=== PATIENT | female | born 1990 | race Caucasian/White ===

== ENCOUNTER 2017-10-29 07:50 | Observation (INO) | payer OTHER ==
[~2017-10-29] VITALS: Ht 167.6 cm; Wt 54.6 kg
[~2017-10-29 07:50] MED LIST: HYDR-762 PO; RANI150T9 PO; SUCR1TAB56 PO; TRAM50TA2 PO
[2017-10-29] MEDS ORDERED: SOD CHLORIDE 0.9% 1,000 ML IV STA (08:50)
[2017-10-29] MEDS ORDERED: ONDANSETRON 4 MG INJ IV STA (08:50)
--- NOTE | 2017-10-29 09:29 | RADRPT ---
PROCEDURE: CT Brain without contrast. CLINICAL INDICATION: Syncope TECHNIQUE: Routine CT scan of the brain was performed on a high resolution multi detector scanner without intravenous contrast. One or more of the following dose reduction techniques were used: Auto mated exposure control; Adjustment of the mA and/or kV according to patient size; Use of iterative r econstruction technique. CTDI = 45 mGy. DLP = 630 mGy-cm. DICOM images are available. COMPARISON: No prior relevant examinations are available for comparison. FINDINGS: Hemorrhage: No evidence of intracranial hemorrhage. Acute ischemic changes: No evidence of acute ischemic changes. Mass effect: None. Parenchymal volume: Within normal limits for age. Ventricular system: Concordant with parenchymal volume. Chronic changes: Parenchymal attenuation is within normal limits. Extracranial soft tissues: Unremarkable. Calvarium: No fractures. Paranasal sinuses: Visualized paranasal sinuses are clear. Mastoid air cells: Visualized mastoid air cells are clear. IMPRESSION: No acute intracranial abnormalities. Normal appearance of the brain parenchyma. RPTAT: AADD .Krishan Madera MD, Date Time Electronically viewed and signed by .Krishan Madera MD, on 10/29/2017 09:29 .B/
--- NOTE | 2017-10-29 09:50 | ERD ---
ER Documentation Chief Complaint Chief Complaint syncope last friday, today has daigle HPI Patient is a 27-year-old female who presents with sudden onset, intermittent, severe headaches since last Friday when she had a syncopal episode that was witnessed. She denies having a prodrome prior to losing consciousness. She states that her friend saw her fall for it on the sidewalk and hit her head. She was unconscious for 1 minute per report. There is no seizure-like activity. The patient states that she had a second episode today. She reports having intermittent chest pain and shortness of breath for several years. She has seen a skiving machine operator in the diagnosed with an incomplete right bundle branch block. She is scheduled to have a stress test, but did not. She denies focal weakness or numbness, denies vomiting. She denies fever. She reports generalized weakness. ROS All systems reviewed and are negative except as per history of present illness. Medications Home Meds Discontinued Scripts Tramadol HCl (Tramadol HCl) 50 Mg Tablet, 50 MG PO Q6, #20 TAB 0 Refills Prov:ASCENCION CHOUDHURY PA-C 01/13/16 Hydrocodone Bit-Acetaminophen* ([place]*) 10-325 Mg Tablet, 1 TAB PO Q6 Y for PAIN , #20 TAB Prov:CLINTON CARDENAS 12/06/15 Sucralfate* (Carafate*) 1 Gm Tab, 1 GM PO QID, #30 TAB Prov:CLINTON CARDENAS 12/06/15 Ranitidine Hcl* (Zantac*) 150 Mg Tablet, 150 MG PO BID Y for GASTROINTESTINAL UPSET, #30 TAB Prov:CLINTON CARDENAS 12/06/15 Allergies Allergies: Coded Allergies: No Known Allergy (Unverified , 01/13/16) PMhx/Soc Medical history: Unknown thyroid condition, right bundle branch block, peptic ulcer disease, anxiety Past surgical history: Denies Social history: Denies tobacco or illicit drugs. Drinks occasional alcohol. Medical and Surgical Hx: pt denies Surgical Hx History of Surgery: No Anesthesia Reaction: No Hx Neurological Disorder: No Hx Respiratory Disorders: No Hx Cardiac Disorders: Yes (HEART MURMURAS WHEN SHE WAS A KID) Hx Psychiatric Problems: Yes (anxiety; PANIC ATTACKS) Hx Miscellaneous Medical Probl: Yes (Kidney stones, stomach ulcer;VERTIGO; ) Hx Alcohol Use: Yes (occasional) Hx Substance Use: No Hx Tobacco Use: No Smoking Status: Never smoker FmHx No sudden cardiac Family History: coronary disease, No diabetes Physical Exam Vitals Vital Signs Date Time Temp Pulse Resp B/P Pulse Ox O2 Delivery O2 Flow Rate FiO2 10/29/17 12:31 88 19 99/60 Room Air 10/29/17 11:08 98.4 87 15 118/74 100 Room Air 10/29/17 07:51 98.6 99 18 134/87 99 Physical Exam Const: No acute distress Head: Atraumatic Eyes: Normal Conjunctiva, pupils equal round reactive, no disconjugate gaze, right periorbital ecchymosis without bony tenderness ENT: Normal External Ears, Nose and Mouth. Neck: Full range of motion..~ No meningismus. No midline tenderness Resp: Clear to auscultation bilaterally, no wheezes, no rales Cardio: Regular rate and rhythm, no murmurs Abd: Soft, non tender, non distended. Skin: No petechiae or rashes Back: No midline or flank tenderness Ext: No cyanosis, or edema Neur: Awake and alert cranial nerves II through XII intact bilaterally, strength and sensation full in 4 extremities. No pronator drift. Psych: Normal Mood and Affect Result Diagram: 10/29/17 1014 10/29/17 1014 Results 24 hrs Laboratory Tests Test 10/29/17 10:14 10/29/17 10:30 10/29/17 11:45 White Blood Count 11.510^3/ul Red Blood Count 4.6610^6/ul Hemoglobin 14.2g/dl Hematocrit 42.6% Mean Corpuscular Volume 91.4fl Mean Corpuscular Hemoglobin 30.5pg Mean Corpuscular Hemoglobin Concent 33.3g/dl Red Cell Distribution Width 12.6% Platelet Count 10116^3/UL Mean Platelet Volume 10.7fl Neutrophils % 76.8% Lymphocytes % 14.2% Monocytes % 7.1% Eosinophils % 0.8% Basophils % 0.6% Nucleated Red Blood Cells % 0.0/100WBC Neutrophils # 8.910^3/ul Lymphocytes # 1.610^3/ul Monocytes # 0.810^3/ul Eosinophils # 0.110^3/ul Basophils # 0.110^3/ul Nucleated Red Blood Cells # 0.010^3/ul Prothrombin Time 12.9Sec Prothrombin Time Ratio 1.0 INR International Normalized Ratio 0.96 Sodium Level 140mmol/L Potassium Level 4.6mmol/L Chloride Level 104mmol/L Carbon Dioxide Level 27mmol/L Anion Gap 14 Blood Urea Nitrogen 12mg/dl Creatinine 0.66mg/dl Glucose Level 100mg/dl Hemoglobin A1c 5.3% Calcium Level 9.5mg/dl Troponin I < 0.012ng/ml Thyroid Stimulating Hormone (TSH) 0.613MIU/L Free Thyroxine 0.84ng/dl Serum HCG, Qualitative NEGATIVE Urine Color YELLOW Urine Clarity SLIGHTLY CLOUDY Urine pH 6.0 Urine Specific [place] 1.021 Urine Ketones NEGATIVEmg/dL Urine Nitrite NEGATIVEmg/dL Urine Bilirubin NEGATIVEmg/dL Urine Urobilinogen NEGATIVEmg/dL Urine Leukocyte Esterase NEGATIVELeu/ul Urine Microscopic RBC 14/HPF Urine Microscopic WBC 3/HPF Urine Squamous Epithelial Cells MANY/HPF Urine Mucus MODERATE/HPF Urine Hemoglobin 1+mg/dL Urine Glucose NEGATIVEmg/dL Urine Total Protein NEGATIVEmg/dl Urine Opiates Screen Negative Urine Barbiturates Negative Urine Amphetamines Screen Negative Urine Benzodiazepines Screen Negative Urine Cocaine Screen Negative Urine Cannabinoids Negative CSF Tubes Submitted 4 CSF Volume 4.0ml CSF Appearance CLEAR CSF Color COLORLESS CSF WBC 1/cmm CSF RBC 0/uL CSF Cell Count Tube # TUBE#4 CSF Mononuclear Cells % (Auto) 0.0% CSF Polynuclear WBCs (%) 100.0% Current Medications Medications (Trade) Dose Ordered Sig/Angus Route PRN Reason Start Time Stop Time Status Last Admin Dose Admin Sodium Chloride (NS) 1,000 ml @ 1,000 mls/hr Q1H STAT IV 10/29/17 08:50 10/29/17 09:49 DC 10/29/17 09:50 Ondansetron HCl (Zofran Inj) 4 mg ONCE STAT IV 10/29/17 08:50 10/29/17 08:57 DC 10/29/17 10:41 Ondansetron HCl (Zofran Inj) 4 mg ER BRIDGE PRN IV NAUSEA AND/OR VOMITING 10/29/17 12:00 10/30/17 11:59 Acetaminophen (Tylenol Tab) 650 mg ER BRIDGE PRN PO MILD PAIN/FEVER 10/29/17 12:00 10/30/17 11:59 IV Flush (NS 3 ml) 3 ml PER PROTOCOL IV 10/29/17 12:30 Ondansetron HCl (Zofran Inj) 4 mg Q6H PRN IV NAUSEA AND/OR VOMITING 10/29/17 12:30 Acetaminophen (Tylenol Tab) 650 mg Q6H PRN PO PAIN LEVEL 1-3 OR FEVER 10/29/17 12:30 Acetaminophen/ Hydrocodone Bitart ([place] (5/325)) 1 tab Q6H PRN PO PAIN LEVEL 4-6 10/29/17 12:30 Procedures/MDM EKG read by me: Time 9:00, rate 73 Rhythm: Normal sinus [place]: Normal Intervals: Normal ST-T waves: no ischemic changes Ectopy: No Q-waves: No Impression: No evidence of ischemia or arrhythmia, no Brugada criteria, no delta wave, no epsilon wave, no septal hypertrophy Lumbar Puncture by me: Patient consented, time out performed, sterilely prepped/draped, anesthetized locally. Anesthesia: 1% lidocaine locally Location: One interspace below the iliac crest Technique: 22 gauge needle with stylet for entry and removal of needle Results: Clear CSF fluid 5 cc No post procedure complications, bleeding, numbness or weakness. MDM: Patient is a 27-year-old female who presents to the ER with 2 episodes of syncope without prodrome in the last 5 days. She has facial trauma that she states occurred during the first episode of syncope. The second episode occurred today. She reports sudden onset and acute headaches intermittently over the last week. CT was negative and LP is negative for subarachnoid hemorrhage. She reports having chronic dyspnea and chest pain for years. Her EKG is nonischemic and does not show abnormalities associated with sudden cardiac . Her syncopal episodes are nonexertional. There is no family history of sudden cardiac . Given the lack of prodrome, I am concerned about the possibility of cardiac arrhythmia. The patient has seen a skiving machine operator and was previously diagnosed with a right bundle branch block. She has no evidence of bundle branch block on EKG today. Case was discussed with Dr. Urbina who will admit the patient. Departure Diagnosis: Primary Impression: Syncope Syncope type: unspecified Qualified Code: R55 - Syncope, unspecified syncope type Additional Impressions: Facial contusion Encounter type: initial encounter Qualified Code: S00.83XA - Contusion of face, initial encounter Headache Headache type: unspecified Headache chronicity pattern: acute headache Intractability: not intractable Qualified Code: R51 - Acute nonintractable headache, unspecified headache type Condition: Stable GIBSON BLACKWOOD MD Oct 29, 2017 09:50
--- NOTE | 2017-10-29 10:36 | RADRPT ---
PROCEDURE: XR Chest. CLINICAL INDICATION: Dyspnea. TECHNIQUE: Chest x-ray, single view. COMPARISON: CR CHEST 07/17/2014. FINDINGS: The cardiomediastinal silhouette is normal. The lungs are clear. Skeletal structures and upper abd omen are unremarkable. IMPRESSION: Unremarkable chest x-ray. RPTAT: AAQQ .Patricia Lane MD, MD Date Time Electronically viewed and signed by .Patricia Lane MD, MD on 10/29/2017 10:35 .T/
[2017-10-29 10:47] LABS: BASOPHIL # 0.1 10^3/ul (0.0-0.1); BASOPHILS % 0.6 % (0.0-2.0); EOSINOPHILS # 0.1 10^3/ul (0.0-0.5); EOSINOPHILS % 0.8 % (0.0-7.0); HEMATOCRIT 42.6 % (37.0-47.0); HEMOGLOBIN 14.2 g/dl (12.0-16.0); LYMPHOCYTES # 1.6 10^3/ul (0.8-2.9); LYMPHOCYTES % 14.2 % (15.0-51.0); MEAN CORPUSCULAR HEMOGLOBIN 30.5 pg (29.0-33.0); MEAN CORPUSCULAR HGB CONC 33.3 g/dl (32.0-37.0); MEAN CORPUSCULAR VOLUME 91.4 fl (82.0-101.0); MEAN PLATELET VOLUME 10.7 fl (7.4-10.4); MONOCYTE # 0.8 10^3/ul (0.3-0.9); MONOCYTES % 7.1 % (0.0-11.0); NEUTROPHIL # 8.9 10^3/ul (1.6-7.5); NEUTROPHILS % 76.8 % (39.0-77.0); PLATELET COUNT 249 10^3/UL (140-415); RED BLOOD COUNT 4.66 10^6/ul (4.20-5.40); RED CELL DISTRIBUTION WIDTH 12.6 % (11.5-14.5); WHITE BLOOD COUNT 11.5 10^3/ul (4.8-10.8)
[2017-10-29 11:08] LABS: ANION GAP 14 (8-16); BLOOD UREA NITROGEN 12 mg/dl (7-20); CALCIUM 9.5 mg/dl (8.4-10.2); CARBON DIOXIDE 27 mmol/L (21-31); CHLORIDE 104 mmol/L (97-110); CREATININE 0.66 mg/dl (0.44-1.00); GLUCOSE 100 mg/dl (70-220); POTASSIUM 4.6 mmol/L (3.5-5.1); SODIUM 140 mmol/L (135-144)
[2017-10-29 11:09] LABS: INR 0.96; PROTIME 12.9 Sec (11.9-14.9)
[2017-10-29 11:12] LABS: ADD UMIC YES; UR ASCORBIC ACID NEGATIVE (NEGATIVE); UR BILIRUBIN (Dip) NEGATIVE (NEGATIVE); UR BLOOD (Dip) 1+ mg/dL (NEGATIVE); UR CLARITY SLIGHTLY CLOUDY (CLEAR); UR COLOR YELLOW (YELLOW); UR GLUCOSE (Dip) NEGATIVE (NEGATIVE); UR KETONES (Dip) NEGATIVE (NEGATIVE); UR LEUKOCYTE ESTERASE (Dip) NEGATIVE Leu/ul (NEGATIVE); UR MUCUS MODERATE /HPF (NONE SEEN); UR NITRITE (Dip) NEGATIVE (NEGATIVE); UR RBC 14 /HPF (0-5); UR SPECIFIC GRAVITY (Dip) 1.021 (1.003-1.030); UR SQUAMOUS EPITHELIAL CELL MANY /HPF (FEW); UR TOTAL PROTEIN (Dip) NEGATIVE (NEGATIVE); UR UROBILINOGEN (Dip) NEGATIVE (NEGATIVE)
[2017-10-29 11:24] LABS: TROPONIN-I < 0.012 ng/ml (0.00-0.12)
[2017-10-29] MEDS ORDERED: ONDANSETRON 4 MG INJ IV PRN ×2 (12:00→12:30)
[2017-10-29] MEDS ORDERED: ACETAMINOPHEN 325 MG TAB PO PRN ×2 (12:00→12:30)
[2017-10-29] MEDS ORDERED: NACL 0.9% 3 ML SYG IV SCH (12:30)
[2017-10-29] MEDS ORDERED: HYDROCODONE/APAP (5/325) TAB PO PRN (12:30)
--- NOTE | 2017-10-29 12:31 | HP ---
Date/Time of Note Date/Time of Note DATE: 10/29/17 TIME: 12:29 Assessment/Plan VTE Prophylaxis VTE Prophylaxis Intervention: SCD's Assessment/Plan Chief Complaint/Hosp Course 1. Syncope. -Brain imaging negative. -Most probably cardiogenic in origin since the patient has a history of right bundle branch block. -2D echocardiogram. -Cardiology consult. -Obtain urine drug screen. 2. Right bundle branch block. -Cardiology consultation. -Avoid AV cassandra blocking agents. 3. Migraine headaches. -As needed analgesics. Plan: The patient will be admitted to inpatient telemetry floor. The patient will be started on a regular diet. The patient will be started on DVT prophylaxis. The patient will remain a full code. Activities will be with assist. The rest of the patient's management will be based on the clinical course, inputs from consultants, and the results of diagnostic studies. Based on the patient's clinical presentation, she most probably requires at least 2 midnights' stay for further management and evaluation of her clinical presentation. The patient was seen in collaboration with . Problems: HPI/ROS Admit Date/Time Admit Date/Time Hx of Present Illness Reason for admission: Witnessed syncope. Consultants 1. Cedric Lehman MD, Cardiology. This is a 27-year-old female with past medical history of migraine headaches and nephrolithiasis who came to the emergency room after 2 episodes of syncope. The patient verbalized that the first episode of syncope happened on 2016 when she found herself on the floor. The second episode happened on 2016 while she was having a conversation with her friend and she fell forward hitting her face on a wall. The patient denied any prodrome. The patient denied any history of seizures. The patient verbalized that she was recently been diagnosed with a right bundle branch block and she follows up with outpatient cardiology. The patient verbalized that she was apparently scheduled for a stress test as outpatient. The patient also verbalized that she has been working long hours for the past few days and had minimal rest including poor sleep. The patient has been complaining of some chest pain and exertional dyspnea. The patient denied any long travels. In the emergency room, the patient's 12-lead EKG showed incomplete right bundle branch block. Patient had minimal leukocytosis. The patient's brain CT scan was negative for any acute intracranial findings. The patient's chest x-ray was within normal limits. The patient had a lumbar puncture done by the ER physician. ROS Constitutional: fatigue Eyes: no complaints ENT: no complaints Respiratory: shortness of breath Cardiovascular: chest pain, other (Exertional dyspnea) Gastrointestinal: no complaints Genitourinary: no complaints Musculoskeletal: no complaints Skin: no complaints Neurologic: headache Endocrine: no complaints Lymphatic: no complaints Psychological: anxiety Immunologic: no complaints PMH/Family/Social Past Medical History Medical History: other (Migraines, recently diagnosed RBBB, "thyroid problem," stomach ulcer, panic attacks.) Past Surgical History Past Surgical Hx: no surgical history Social History Lives by herself. Works in retail. Alcohol Use: occasionally Smoking Status: Never smoker Drug Use: none Exam/Review of Systems Vital Signs Vitals Vital Signs Date Time Temp Pulse Resp B/P Pulse Ox O2 Delivery O2 Flow Rate FiO2 10/29/17 11:08 98.4 87 15 118/74 100 Room Air Exam Exam General: Adequately build 27 year-old female lying in bed in no apparent distress. HEENT: Normocephalic, atraumatic. Eyes: Anicteric sclerae, conjunctivae clear. Right periorbital ecchymosis. ENT: Nasal septum midline, oral mucosa moist. Neck supple, no JVD noticed. Respiratory: Bilaterally diminished breath sounds. No use of accessory muscles of respiration. No adventitious breath sounds. Cardiovascular: S1, S2 heard. Regular rate and rhythm. Abdomen: Soft, nontender, and nondistended. Bowel sounds positive in all 4 quadrants. Genitourinary: Deferred. Extremities: No cyanosis, no clubbing, no edema. Peripheral pulses palpable. Neurologic: Cranial nerves II through XII grossly intact. The patient is awake, alert, and oriented. Skin: Multiple tattoos. Labs Result Diagram: 10/29/17 1014 10/29/17 1014 Medications Medications Current Medications Ondansetron HCl (Zofran Inj) 4 mg Q6H PRN IV NAUSEA AND/OR VOMITING; Start at 12:30; Status UNV Acetaminophen (Tylenol Tab) 650 mg Q6H PRN PO PAIN LEVEL 1-3 OR FEVER; Start 10/29/17 at 12:30; Status UNV Acetaminophen/ Hydrocodone Bitart ([place] (5/325)) 1 tab Q6H PRN PO PAIN LEVEL 4 -6; Start 10/29/17 at 12:30; Status UNV JAXSON HILL NP Oct 29, 2017 12:31 JAXSON HILL NP Oct 29, 2017 12:31
[2017-10-29 12:34] LABS: BARBITURATES Negative (NEGATIVE); BENZODIAZEPINES Negative (NEGATIVE); CANNABINOIDS Negative (NEGATIVE); COCAINE Negative (NEGATIVE); OPIATES Negative (NEGATIVE)
[2017-10-29 12:44] LABS: CSF COLOR COLORLESS
[2017-10-29 12:45] LABS: CSF COLOR COLORLESS; CSF#TUBE COUNT TUBE#1; CSF#TUBE COUNT TUBE#4; CSF#TUBES REC'D 4
[2017-10-29 14:07] LABS: D-DIMER 307.8 ng/ml (<460)
[2017-10-29 14:55] VITALS: TEMP 98.3
[2017-10-29 16:00] VITALS: BP 118/76; PULSE 86; RESP 16
[2017-10-29 16:33] VITALS: PULSE 80
--- NOTE | 2017-10-29 16:42 | CONS ---
Date/Time of Note Date/Time of Note DATE: 10/29/17 TIME: 16:40 Assessment/Plan Assessment/Plan Additional Assessment/Plan 27 yo with first lifetime syncope - had some prior cardiac eval via [facility] - EKG with inc RBBB - will review ECHO - if normal, outpt ETT vs EPS vs tilt table test to be considered. # [id number] Consultation Date/Type/Reason Admit Date/Time Oct 29, 2017 at 11:51 Initial Consult Date Exam/Review of Systems Vital Signs Vitals Vital Signs Date Time Temp Pulse Resp B/P Pulse Ox O2 Delivery O2 Flow Rate FiO2 10/29/17 16:33 80 10/29/17 14:55 98.3 18 121/84 100 Room Air Results Result Diagram: 10/29/17 1014 10/29/17 1014 Results 24 hrs Laboratory Tests Test 10/29/17 10:14 10/29/17 10:30 10/29/17 11:45 White Blood Count 11.5 H Red Blood Count 4.66 Hemoglobin 14.2 Hematocrit 42.6 Mean Corpuscular Volume 91.4 Mean Corpuscular Hemoglobin 30.5 Mean Corpuscular Hemoglobin Concent 33.3 Red Cell Distribution Width 12.6 Platelet Count 249 Mean Platelet Volume 10.7 H Neutrophils % 76.8 Lymphocytes % 14.2 L Monocytes % 7.1 Eosinophils % 0.8 Basophils % 0.6 Nucleated Red Blood Cells % 0.0 Neutrophils # 8.9 H Lymphocytes # 1.6 Monocytes # 0.8 Eosinophils # 0.1 Basophils # 0.1 Nucleated Red Blood Cells # 0.0 Prothrombin Time 12.9 Prothrombin Time Ratio 1.0 INR International Normalized Ratio 0.96 D-Dimer 307.80 D-Dimer Comment Sodium Level 140 Potassium Level 4.6 Chloride Level 104 Carbon Dioxide Level 27 Anion Gap 14 Blood Urea Nitrogen 12 Creatinine 0.66 Glucose Level 100 Hemoglobin A1c 5.3 Calcium Level 9.5 Troponin I < 0.012 Thyroid Stimulating Hormone (TSH) 0.613 Free Thyroxine 0.84 Serum HCG, Qualitative NEGATIVE Urine Color YELLOW Urine Clarity SLIGHTLY CLOUDY A Urine pH 6.0 Urine Specific [place] 1.021 Urine Ketones NEGATIVE Urine Nitrite NEGATIVE Urine Bilirubin NEGATIVE Urine Urobilinogen NEGATIVE Urine Leukocyte Esterase NEGATIVE Urine Microscopic RBC 14 H Urine Microscopic WBC 3 Urine Squamous Epithelial Cells MANY A Urine Mucus MODERATE Urine Hemoglobin 1+ H Urine Glucose NEGATIVE Urine Total Protein NEGATIVE Urine Opiates Screen Negative Urine Barbiturates Negative Urine Amphetamines Screen Negative Urine Benzodiazepines Screen Negative Urine Cocaine Screen Negative Urine Cannabinoids Negative CSF Tubes Submitted 4 CSF Volume 4.0 CSF Appearance CLEAR CSF Color COLORLESS CSF WBC 1 CSF RBC 0 CSF Cell Count Tube # TUBE#4 CSF Mononuclear Cells % (Auto) 0.0 CSF Polynuclear WBCs (%) 100.0 Medications Medications Current Medications Ondansetron HCl (Zofran Inj) 4 mg Q6H PRN IV NAUSEA AND/OR VOMITING; Start at 12:30 Acetaminophen (Tylenol Tab) 650 mg Q6H PRN PO PAIN LEVEL 1-3 OR FEVER; Start 10/29/17 at 12:30 Acetaminophen/ Hydrocodone Bitart ([place] (5/325)) 1 tab Q6H PRN PO PAIN LEVEL 4 -6; Start 10/29/17 at 12:30 BISHOP FLORES MD Oct 29, 2017 16:42
[2017-10-29 16:59] VITALS: Ht 167.6 cm; Wt 54.6 kg
--- NOTE | 2017-10-29 17:06 | RADRPT ---
Echocardiogram Report Patient Name: KRISS WANG Gender: Female Date: 1990 Study Date: 29-Oct-2017 Renal Nurse: Eren Wu RDCS Location: [facility] Ref. Physician: JAXSON HILL Quality: Good Procedures: Transthoracic echocardiogram with complete 2D, M-Mode, and doppler examination. Indications: Syncope. 2D/M Mode Doppler Measurement Value Normal Ranges Measurement Value Normal Ranges LVIDd 2D 4.1 3.5 - 5.6 cm AV Peak Fredy 1.6 m/sec LVIDs 2D 2.6 2.1 - 4.1 cm AV Peak PG 10.0 mmHg FS 2D 37.7 % LVOT Peak Fredy 1.3 m/sec LVPWd 2D 0.9 0.6 - 1.1 cm LVOT Peak PG 6.0 mmHg IVSd 2D 0.9 0.6 - 1.1 cm MV E Peak Fredy 1.1 m/sec IVS/LVPW 2D 1.0 MV A Peak Fredy 0.8 m/sec AoR Diam 2D 2.2 2.0 - 3.7 cm MV E/A 1.5 LA/Ao 2D 1 0 - 1 MV Decel Time 116 msec EDV 2D 69.4 cm3 MV E/A 1.5 ESV 2D 16.8 cm3 TR Peak Fredy 2.3 m/sec LA Dimen 2D 3.2 2.3 - 4.0 cm TR Peak PG 21.0 mmHg RVSP 24.0 mmHg Findings Left Ventricle: Normal left ventricular systolic function. Normal left ventricular cavity size. Normal left ventricular wall thickness. Ejection fraction is visually estimated at 65 %. Tissue Doppler/Mitral Doppler indices are within normal limits. Right Ventricle: Normal right ventricular size. Normal right ventricular systolic function. Left Atrium: The left atrium is normal in size. Right Atrium: The right atrium is normal in size. Mitral Valve: Normal appearance and function of the mitral valve with trace physiologic regurgitation. Aortic Valve: Normal appearance of the aortic valve. No significant aortic stenosis or insufficiency. Tricuspid Valve: Normal appearance of the tricuspid valve. Estimated peak PA systolic pressure 24 mmHg. There is trace tricuspid regurgitation. Pulmonic Valve: Normal pulmonic valve appearance. Pericardium: Normal pericardium with no significant pericardial effusion. Aorta: Normal aortic root. IVC: Normal size and normal respiratory collapse consistent with normal right atrial pressure. Conclusions Normal left ventricular systolic function. Normal left ventricular cavity size. Normal left ventricular wall thickness. Ejection fraction is visually estimated at 65 %. Tissue Doppler/Mitral Doppler indices are within normal limits. Normal appearance and function of the mitral valve with trace physiologic regurgitation. Normal appearance of the tricuspid valve. Estimated peak PA systolic pressure 24 mmHg. There is trace tricuspid regurgitation. Electronically Signed By: Cedric Lehman 29-Oct-2017 17:05:45 -0800 Patient Name: KRISS WANG Study Date: 29-Oct-2017 [id number]
[2017-10-29 19:30] VITALS: BP 121/64; RESP 20
[2017-10-29 20:02] VITALS: PULSE 85
--- NOTE | 2017-10-29 21:27 | CONS ---
DATE OF ADMISSION: 10/29/2017 DATE OF CONSULTATION: 10/29/2017 CARDIOLOGY CONSULTATION REFERRING PHYSICIAN: Dr. Flores REASON FOR EVALUATION: Syncope. HISTORY OF PRESENT ILLNESS: Ms. 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 The patient said that over the last several days, she has been working very long hours because of the holiday season, not getti ng ____ and Friday she blacked out. She does not remember palpitations, syncope. She has never had palpitations or preexisting shortness of breath. She does not have this. She has ____ before. patient stated that she had recent evaluations for [facility] with Dr. Rodriguez, and she was supposed to have a 2-D echo and stress test, but she couldn't do it because of holiday hours. The patient does not report taking any new medications, she is only on control pill. She says her mother has a history of syncope, but her mother had a stroke and early coronary artery disease. The patient appears to be hemodynamically stable at this time. We will rule her out for acute isc hemia. I will review a 2D echo and provide recommendations as needed. Her 12-lead EKG shows incomp lete right bundle branch block, which is of unclear significance at this time. PAST MEDICAL HISTORY: History of shortness of breath, history of tension migraines. HOME MEDICATIONS: Include: 1. control pills. 2. Occasional pain medicines. FAMILY HISTORY: Positive for premature coronary artery disease in her mother's side, she had a poss ible stroke. ALLERGIES: NO KNOWN DRUG ALLERGIES. SOCIAL HISTORY: The patient doesn't smoke, doesn't drink, doesn't use drugs. FAMILY HISTORY: Negative for sudden cardiac except for cardiac history as described above. PHYSICAL EXAMINATION: VITAL SIGNS: Temperature 98.3, heart rate is 80, her blood pressure is 121/84. GENERAL: She is a well-nourished woman in no acute distress, alert and oriented x3, aware of her co ndition. HEAD: Normocephalic except for the bruising on the right eye. NECK: Supple. JVD 6-7 cm. There is no lymphadenopathy, no thyromegaly. HEART: Regular with soft holosystolic murmur at the apex. PMI is nondisplaced. I do not hear an S 3. LUNGS: Coarse at bases. ABDOMEN: Distended. Bowel sounds are present. There is no hepatosplenomegaly. GENITOURINARY: Grossly intact. EXTREMITIES: Show ____. SKIN: Normal with multiple tattoos. LABORATORY DATA: INR is 0.96, creatinine is 0.6. Troponins are negative. ECG read by me shows incomplete right bundle block. ASSESSMENT AND PLAN: 1. Syncope. The etiology of syncope is still unclear. The differential diagnosis multifaceted fro m seizure to cardiac arrhythmia. Apparently the patient had initiation of cardiac workup with Dr. Mae luke through [facility]. For now, we will follow up with a 2-D echo. If no alternative etiology is discovered, I think an exercise treadmill versus outpatient EPS might be a reasonable o ption to proceed. 2. Migraines. We will continue to treat as necessary. No reports noted now. 3. Shortness of breath, etiology unclear. No evidence of cardiac decompensation now. For now, con servative therapy as expected. They are awaiting a 2D echo. Dictated By: BISHOP FLORES MD ML/NTS Conf#: [id number] DID#: [id number] CC: RAQUEL PERRY MD;*EndCC*
[2017-10-29 23:48] VITALS: BP 110/65; PULSE 87; RESP 16
[2017-10-30 00:05] VITALS: PULSE 100
--- NOTE | 2017-10-30 10:54 | DS ---
Date/Time of Note Date/Time of Note DATE: 10/30/17 TIME: 10:54 Discharge Summary Admission/Discharge Info Admit Date/Time Oct 29, 2017 at 11:51 Discharge Date/Time Oct 30, 2017 at 00:59 LEFT AGAINST MEDICAL ADVICE Discharge Diagnosis 1. Syncope. 2. Right bundle branch block on 12-Lead EKG. 3. Anxiety disorder. Patient Condition: Fair Consults 1. Cedric Lehman MD, Cardiology. Procedures Brain CT IMPRESSION: No acute intracranial abnormalities. Normal appearance of the brain parenchyma. 2D Echocardiogram Conclusions Normal left ventricular systolic function. Normal left ventricular cavity size. Normal left ventricular wall thickness. Ejection fraction is visually estimated at 65 %. Tissue Doppler/Mitral Doppler indices are within normal limits. Normal appearance and function of the mitral valve with trace physiologic regurgitation. Normal appearance of the tricuspid valve. Estimated peak PA systolic pressure 24 mmHg. There is trace tricuspid regurgitation. Hx of Present Illness Reason for admission: Witnessed syncope. This is a 27-year-old female with past medical history of migraine headaches and nephrolithiasis who came to the emergency room after 2 episodes of syncope. The patient verbalized that the first episode of syncope happened on 2016 when she found herself on the floor. The second episode happened on 2016 while she was having a conversation with her friend and she fell forward hitting her face on a wall. The patient denied any prodrome. The patient denied any history of seizures. The patient verbalized that she was recently been diagnosed with a right bundle branch block and she follows up with outpatient cardiology. The patient verbalized that she was apparently scheduled for a stress test as outpatient. The patient also verbalized that she has been working long hours for the past few days and had minimal rest including poor sleep. The patient has been complaining of some chest pain and exertional dyspnea. The patient denied any long travels. In the emergency room, the patient's 12-lead EKG showed incomplete right bundle branch block. Patient had minimal leukocytosis. The patient's brain CT scan was negative for any acute intracranial findings. The patient's chest x-ray was within normal limits. The patient had a lumbar puncture done by the ER physician. Hospital Course The patient was admitted to inpatient setting. A cardiology consult was obtained. As per cardiology, the patient should have an exercise treadmill test versus outpatient electrophysiology studies for further evaluation of her syncope if other etiologies are ruled out. The patient's brain CT scan was negative. The patient's urine drug screens was negative. The patient's CSF analysis was unremarkable. The patient's 2D echocardiogram showed preserved left ventricular ejection fraction. The patient was being monitored on telemetry floor. Meanwhile, the patient wanted to leave the hospital AGAINST MEDICAL ADVICE. She was instructed on the consequences of leaving the hospital AGAINST MEDICAL ADVICE including the possibility of , but she decided to leave. No discharge planning was done since the patient left the hospital AGAINST MEDICAL ADVICE. The case and management of this patient was fully discussed with . Home Meds Discontinued Scripts Tramadol HCl (Tramadol HCl) 50 Mg Tablet, 50 MG PO Q6, #20 TAB 0 Refills Prov:ASCENCION CHOUDHURY PA-C 01/13/16 Hydrocodone Bit-Acetaminophen* ([place]*) 10-325 Mg Tablet, 1 TAB PO Q6 Y for PAIN , #20 TAB Prov:CLINTON CARDENAS 12/06/15 Sucralfate* (Carafate*) 1 Gm Tab, 1 GM PO QID, #30 TAB Prov:CLINTON CARDENAS 12/06/15 Ranitidine Hcl* (Zantac*) 150 Mg Tablet, 150 MG PO BID Y for GASTROINTESTINAL UPSET, #30 TAB Prov:CLINTON CARDENAS 12/06/15 Follow-up Plan No follow-up plan was done since the patient left the hospital AGAINST MEDICAL ADVICE. Primary Care Provider Care Physician No Primary Time spent on discharge: < 30 minutes Pending Labs Laboratory Tests Test 10/29/17 11:45 CSF Tubes Submitted 4 CSF Volume 4.0ml CSF Appearance CLEAR CSF Color COLORLESS CSF WBC 1/cmm (0-10) CSF RBC 0/uL (0-0) CSF Cell Count Tube # TUBE#4 CSF Mononuclear Cells % (Auto) 0.0% CSF Polynuclear WBCs (%) 100.0% JAXSON HILL NP Oct 30, 2017 10:54
== END 2017-10-30 00:59 | disposition left against medical advice (07) ==
LOC: FTE 07:50 → INTOOBSV 11:51 → MS4 11:51
PROVIDERS: ADMIT Family Medicine; ATTEND Family Medicine
DX: R55 Syncope and collapse (principal); I45.10 Unspecified right bundle-branch block; G43.909 Migraine, unspecified, not intractable, without status migrainosus; F41.9 Anxiety disorder, unspecified
CPT/HCPCS: 70450; 71010; 80048; 80307; 81001; 82945; 83036; 84157; 84439; 84443; 84484; 84703; 85025; 85378; 85610; 89051; 93005; 93306; 96374; 99285; G0378; J2405; J7030

== ENCOUNTER 2018-02-15 08:35 | Emergency (ER) | END 2018-02-15 15:15 | disposition home or self-care (01) ==

== ENCOUNTER → 2018-07-20 | Emergency (ER) | END | disposition left against medical advice (07) ==